=== PATIENT | female | born 1955 | race American Indian/Alaskan Native ===

== ENCOUNTER 2019-12-31 08:51 | Outpatient (CLI) | payer MEDICARE, MEDICAID ==
[2019-12-31 09:30] LABS: Hematocrit 44.7 % (30.3-42.9); Hemoglobin 14.7 gm/dl (10.1-14.3); Mean Corpuscular HGB Conc 33 % (30-34); Mean Corpuscular Volume 88 fl (79-97); Red Blood Count 5.06 M/mm3 (3.65-5.03); Red Cell Distribution Width 15.9 % (13.2-15.2)
[2019-12-31 09:43] LABS: Alanine Aminotransferase 10 units/L (7-56); BUN/Creatinine Ratio 18; Blood Urea Nitrogen 9 mg/dL (7-17); Calcium 8.8 mg/dL (8.4-10.2); Chol/HDL Ratio 2.64 %; HDL Cholesterol 70 mg/dL (40-59); Hemolysis Index 5; LDL Cholesterol,Direct 66 mg/dL (50-130)
[2019-12-31 09:57] LABS: ABG Base Excess -0.6 mmol/L (-2.0-3.0); ABG HCO3 22.6 mmol/L (20.0-26.0); ABG Methemoglobin 0.6 % (0.0-1.5); ABG Oxygen Saturation 97.2 % (95.0-99.0); ABG PCO2 33.3 mm Hg; ABG PH 7.45 pH Units (7.350-7.450); ABG PO2 89.2 mm Hg (80.0-90.0)
[2019-12-31 10:37] LABS: Platelet Count 129 K/mm3 (140-440)
--- NOTE | 2019-12-31 12:04 | Nuclear Medicine Report ---
CHEST 2 VIEWS INDICATION: HYPOXEMINE,SHORTNESS OF BR. COMPARISON: None FINDINGS: Support devices: None. Heart: Within normal limits. Lungs/pleura: No acute air space or interstitial disease. No pneumothorax. Additional findings: None. IMPRESSION: No acute findings. NUCLEAR MEDICINE VENTILATION/PERFUSION LUNG SCAN INDICATION / CLINICAL INFORMATION: HYPOXEMINE,SHORTNESS OF BR. TECHNIQUE: 16.3 mCi of Xe-133 were given by inhalation. 5.1 mCi of Tc-99m MAA were given by IV. COMPARISON: Chest radiograph dated 12/31/2019. FINDINGS: VENTILATION: No significant ventilation defects. PERFUSION: No significant perfusion defects. ADDITIONAL FINDINGS: None. IMPRESSION: Low probability for pulmonary embolism. Signer Name: Juan Clemens Jr, MD Signed: 12/31/2019 11:59 AM Workstation Name: [id number]
--- NOTE | 2019-12-31 13:26 | Fluoroscopy Report ---
UPPER GI HISTORY: D86.9 SARCOIDOSIS. TECHNIQUE: Single and double contrast barium technique utilized to evaluate the esophagus, stomach, and duodenal C-loop. FINDINGS: To begin the exam, swallowing was evaluated in the lateral position under direct fluorosco py. Swallowing was normal. No mucosal irregularity, mass, mass effect, or critical stenosis. There were no abnormal tertiary c ontractions as seen with dysmotility. No gastroesophageal reflux. IMPRESSION: Unremarkable exam. Fluoroscopic time: 1.5 minutes Number of fluoroscopic images: 25 Signer Name: Juan Clemens Jr, MD Signed: 12/31/2019 1:22 PM Workstation Name: [id number]
[2020-01-03 19:33] LABS: Myeloperoxidase Antibody <1.0 AI (<1.0)
== END 2019-12-31 08:52 | disposition home or self-care (01) ==
LOC: CT 08:51
PROVIDERS: ATTEND Internal Medicine
DX: K21.9 Gastro-esophageal reflux disease without esophagitis (principal); E11.9 Type 2 diabetes mellitus without complications; R06.02 Shortness of breath; D86.9 Sarcoidosis, unspecified; R09.02 Hypoxemia; E66.9 Obesity, unspecified
CPT/HCPCS: 36415; 36600; 71046; 74246; 78582; 80053; 80061; 82164; 82803; 84436; 84443; 85027; 86021; 86038; 86431; A9540; A9558